=== PATIENT | female | born 1970 | race Caucasian/White ===

== ENCOUNTER 2016-11-14 09:33 | Emergency (ER) | payer SELFPAY ==
[2016-11-14] MEDS ORDERED: METOCLOPRAMIDE 10 MG/2 ML VIAL ONE (11:18)
[2016-11-14] MEDS ORDERED: ONDANSETRON 4 MG VIAL ONE (11:19)
[2016-11-14] MEDS ORDERED: DIPHENHYDRAMINE 50 MG/ML VIAL ONE (11:19)
[2016-11-14] MEDS ORDERED: KETOROLAC 30 MG/ML VIAL ONE (11:19)
[2016-11-14] MEDS ORDERED: SODIUM CHLORIDE 0.9% 1,000 ML ONE (11:19)
== END 2016-11-14 13:05 | disposition home or self-care (01) ==
LOC: ER 10:30
DX: R51 Headache (principal)
CPT/HCPCS: 70450; 96374; 96375